=== PATIENT | male | born 1965 | race Two or more races ===

== ENCOUNTER 2021-12-04 01:43 | Emergency (ER) | payer MEDICAID, SELFPAY ==
--- NOTE | ~2021-12-04 | CT_ITS ---
EXAMINATION: CT SOFT TISSUE NECK WITHOUT CONTRAST CLINICAL INFORMATION: Coarse 4 is. Croupy cough. Covid positive. COMPARISON: None TECHNIQUE: Helical imaging was performed in the axial plane with generation of coronal and sagittal reformatted images. This CT examination was performed using dose optimization techniques as appropriate, variously including the following: *Automated exposure control *Adjustment of mA and/or kV according to patient size (this includes techniques or standardized protocols for targeted exams where dose is matched to indication/reason for exam; i.e. extremities or head) *Use of iterative reconstruction technique DLP: 1023 mGy-cm FINDINGS: Imaged lungs are clear. The superior mediastinum is unremarkable. There is mild thickening of the colonic folds, with effacement of the laryngeal ventricle. Glottic structures are otherwise unremarkable. No subglottic edema. Epiglottis is thin. No contour abnormality or pathologic enhancement is seen within the oral cavity or pharyngeal mucosal space. The parapharyngeal fat is preserved. The carotid sheath vasculature opacify normally. No extra mucosal soft tissue mass or fluid collection is seen. No retropharyngeal fluid collection is seen. No cervical adenopathy is identified. The parotid glands are homogeneous in attenuation. The submandibular glands are normal. The thyroid gland is normal. Imaged brain parenchyma unremarkable. Mild mucosal thickening present throughout the ethmoid air cells and maxillary sinuses. Mastoid air cells are clear. Imaged brain parenchyma unremarkable. Mandible and temporomandibular joints are unremarkable. Caries present within the right mandibular dentition. Cervical spinal fusion from C5 to T1 with zero-profile devices. Prominent right posterolateral endplate osteophyte at C6-C7 left paracentral posterior endplate osteophyte at C5-C6. CT/CT soft tissue neck wo con IMPRESSION: * Mild thickening of the vocal folds with effacement of the laryngeal ventricle, suggestive of laryngitis. Glottis otherwise unremarkable. * Epiglottis is normal. * No subglottic edema or evidence of airway compromise. * No evidence of deep space infection. * Lungs are clear.
--- NOTE | ~2021-12-04 | XR_ITS ---
EXAMINATION: XR CHEST CLINICAL INFORMATION: Cough and shortness of breath COMPARISON: None TECHNIQUE: Frontal view of the chest was obtained. FINDINGS: No significant abnormality is noted involving the heart, lungs, mediastinum, bony thorax or soft tissues. XR/XR chest 1V IMPRESSION: Unremarkable examination.
[2021-12-04 01:58] VITALS: BP 189/94; PULSE 88; RESP 18; TEMP 36.8; O2SAT 99; BMI 37.3
--- NOTE | 2021-12-04 02:09 | ED.GENADULT ---
HPI - General Adult General Chief complaint: Upper Respiratory Symptoms Stated complaint: covid+ Time Seen by Provider: 12/04/21 01:46 Source: patient Mode of arrival: EMS History of Present Illness HPI narrative: 56-year-old male diagnosis COVID-19 on a home test and known underlying hypertension and diabetes for which he does not take his prescribed medications is brought in by EMS when patient states that he was having some cough, sore throat as well as right-sided neck pain which woke him up from sleep. He otherwise denies any headache, dizziness, ear pain, visual disturbance. Related Data Allergies Allergy/AdvReac Type Severity Reaction Status Date / Time No Known Allergies Allergy Unverified 08/09/20 15:26 Review of Systems Review of Systems: Pertinent positives and negatives as stated in HPI 10 point review of systems is otherwise negative. PMFSH Past Medical History Source: nursing notes reviewed Medical History Hypertension Social History Social History Alcohol intake: never Patient Tobacco Use Status: Never used Tobacco Use of substances other than those prescribed or required for medical reasons: No Advance Directives: No Physical Exam Vital Signs: Vital Signs: Last Vital Signs Temp 97.9 F 12/04/21 04:13 Pulse 86 12/04/21 04:13 Resp 16 12/04/21 04:13 BP 188/94 H 12/04/21 04:13 Pulse Ox 97 12/04/21 04:13 BMI result Body Mass Index 37.3 VITAL SIGNS: Reviewed. GENERAL: Well developed, well nourished, in no acute distress. HEAD: Normocephalic/atraumatic EYES: PERRLA, EOMI EARS: Ext canals without abnormality, TMs non-bulging and non-erythematous NOSE: Nares patent bilateral OROPHARYNX: no oral lesions noted, posterior pharynx clear and non-erythematous without noted tonsillar enlargement/erythema/exudates NECK: Supple, no adenopathy LUNGS: Normal breath sounds, no stridor, no tachypnea. No adventitious sounds or accessory muscle use. SpO2<97> CARDIOVASCULAR: Regular rate and rhythm without noted murmurs, no JVD or lower extremity edema. ABDOMEN: Soft, non-tender, non-distended with bowel sounds. NEUROLOGIC: Alert and oriented x 4. Strength and sensation to light touch were grossly intact x 4. Course Course Course Narrative: 56-year-old male with history and clinical presentation consistent with COVID-19 infection and possible corresponding croup/laryngitis. Review of all investigations otherwise negative for acute findings other than COVID-19 positivity. Due to the croup like features patient received 10 mg of dexamethasone. All results discussed with the patient bedside he was otherwise discharged home in stable condition with instructions to follow up with the primary care provider via telemedicine appointment. Medical Decision Making Lab Data Result diagrams: 12/04/21 02:10 12/04/21 02:10 Labs: Lab Results 12/04/21 12/04/21 12/04/21 Range/Units 02:03 02:10 02:10 WBC 5.9 (4.8-10.8) X10*3/uL RBC 4.37 L (4.60-5.80) X10*6/uL Hgb 13.0 L (14.0-18.0) g/dl Hct 40.2 L (42.0-52.0) % MCV 92.0 (80.0-98.0) fL MCH 29.7 (27.0-33.0) pg MCHC 32.3 (31.0-36.0) g/dl RDW 12.7 (11.0-16.0) % Plt Count 297 (160-400) X10*3/uL MPV 9.8 (9.4-12.4) fL Immature Gran % (Auto) 0.3 (0.0-0.4) % Neut % (Auto) 50.4 (45-73) % Lymph % (Auto) 23.4 (20-40) % [place] % (Auto) 16.4 H (2-11) % Eos % (Auto) 8.1 H (0-4) % Baso % (Auto) 1.4 (0-2) % Lymph # (Auto) 1.4 (1.2-4.9) X10*3/uL [place] # (Auto) 1.0 (0.1-1.2) X10*3/uL Eos # (Auto) 0.5 H (0.0-0.4) X10*3/uL Baso # (Auto) 0.1 (0.0-0.2) X10*3/uL Abs Immat Gran (auto) 0.02 (0.00-0.03) X10*3/uL Absolute Neuts (auto) 3.0 (2.0-8.3) x10*3/uL Absolute Nucleated RBC 0.000 (0.0-0.012) X10*3/uL Nucleated RBC % (auto) 0.0 (0.0-0.2) /100WBC VBG pH (7.32-7.43) VBG pCO2 mmHg VBG pO2 mmHg VBG HCO3 (22-26) mmol/L VBG O2 Saturation % VBG Base Excess mmol/L Sodium 138 (135-145) mmol/L Potassium 5.1 (3.3-5.1) mmol/L Chloride 104 (96-108) mmol/L Carbon Dioxide 24 (22-29) mmol/L Anion Gap 15 (12-20) BUN 21 H (9-16) mg/dL Creatinine 1.58 H (0.5-1.4) mg/dL Estim Creat Clear Calc 69.6 Estimated GFR 45 POC Glucose 173 H (60-115) mg/dL Random Glucose 210 H (60-115) mg/dL Calcium 9.6 (8.4-10.2) mg/dL Total Bilirubin 0.9 (0.0-1.0) mg/dL AST 27 (5-37) U/L ALT 22 (0-40) U/L Alkaline Phosphatase 150 H (39-117) U/L Total Protein 8.0 (6.5-8.0) g/dL Albumin 3.9 (3.5-5.0) g/dL COVID-19 (NOEMI) (Negative) COVID-19 Clin Com 12/04/21 12/04/21 12/04/21 Range/Units 02:10 02:10 02:14 WBC (4.8-10.8) X10*3/uL RBC (4.60-5.80) X10*6/uL Hgb (14.0-18.0) g/dl Hct (42.0-52.0) % MCV (80.0-98.0) fL MCH (27.0-33.0) pg MCHC (31.0-36.0) g/dl RDW (11.0-16.0) % Plt Count (160-400) X10*3/uL MPV (9.4-12.4) fL Immature Gran % (Auto) (0.0-0.4) % Neut % (Auto) (45-73) % Lymph % (Auto) (20-40) % [place] % (Auto) (2-11) % Eos % (Auto) (0-4) % Baso % (Auto) (0-2) % Lymph # (Auto) (1.2-4.9) X10*3/uL [place] # (Auto) (0.1-1.2) X10*3/uL Eos # (Auto) (0.0-0.4) X10*3/uL Baso # (Auto) (0.0-0.2) X10*3/uL Abs Immat Gran (auto) (0.00-0.03) X10*3/uL Absolute Neuts (auto) (2.0-8.3) x10*3/uL Absolute Nucleated RBC (0.0-0.012) X10*3/uL Nucleated RBC % (auto) (0.0-0.2) /100WBC VBG pH 7.34 7.34 (7.32-7.43) VBG pCO2 47 47 mmHg VBG pO2 34 34 mmHg VBG HCO3 26 26 (22-26) mmol/L VBG O2 Saturation 53.0 53.0 % VBG Base Excess 0.2 0.2 mmol/L Sodium (135-145) mmol/L Potassium (3.3-5.1) mmol/L Chloride (96-108) mmol/L Carbon Dioxide (22-29) mmol/L Anion Gap (12-20) BUN (9-16) mg/dL Creatinine (0.5-1.4) mg/dL Estim Creat Clear Calc Estimated GFR POC Glucose (60-115) mg/dL Random Glucose (60-115) mg/dL Calcium (8.4-10.2) mg/dL Total Bilirubin (0.0-1.0) mg/dL AST (5-37) U/L ALT (0-40) U/L Alkaline Phosphatase (39-117) U/L Total Protein (6.5-8.0) g/dL Albumin (3.5-5.0) g/dL COVID-19 (NOEMI) Positive A (Negative) COVID-19 Clin Com See Note Discharge Plan Discharge Clinical Impression: Croup, Viral syndrome, Lab test positive for detection of COVID-19 virus Patient Disposition: Home, Self-Care Instructions: Viral Syndrome (ED), Croup in Adults (ED), COVID-19 (Coronavirus Disease 2019) (ED) Additional Instructions: 1. Recommend using [id number] Tylenol/ibuprofen as needed body aches, headache, temperatures greater than 100.4. 2. Recommend using [id number] cough suppressant to minimize throat and chest irritation. In addition, cool mist humidifier provides good relief at the bedside while sleeping. 3. Isolate for the next 11 days as you are COVID-19 positive and then follow all state and Federal guidelines. 4. Follow-up with your primary care provider in the morning via telemedicine appointment. I strongly recommend that you start taking your prescription medications as prescribed. Return to the ER for acute worsening of symptoms.
[2021-12-04 02:12] LABS: Glucose, Whole Blood 173 mg/dL (60-115)
[2021-12-04 02:14] VITALS: BP 189/94; PULSE 88; RESP 16; TEMP 36.8; O2SAT 98
[2021-12-04 02:16] LABS: MANUAL DIFF FLAG NO
[2021-12-04 02:17] LABS: Basophils Absolute Auto 0.1 X10*3/uL (0.0-0.2); Basophils Percent Auto 1.4 % (0-2); Eosinophils Absolute Auto 0.5 X10*3/uL (0.0-0.4); Eosinophils Percent Auto 8.1 % (0-4); Hematocrit 40.2 % (42.0-52.0); Imm Gran Abs Auto 0.02 X10*3/uL (0.00-0.03); Imm Gran Pct Auto 0.3 % (0.0-0.4); Lymphocytes Absolute Auto 1.4 X10*3/uL (1.2-4.9); Lymphocytes Percent Auto 23.4 % (20-40); Mean Corpuscular HGB Conc 32.3 g/dl (31.0-36.0); Mean Corpuscular Hemoglobin 29.7 pg (27.0-33.0); Mean Platelet Volume 9.8 fL (9.4-12.4); Monocytes Percent Auto 16.4 % (2-11); Neutrophils Percent Auto 50.4 % (45-73); Platelet Count 297 X10*3/uL (160-400); Red Blood Count 4.37 X10*6/uL (4.60-5.80); Red Cell Distribution Width 12.7 % (11.0-16.0); White Blood Count 5.9 X10*3/uL (4.8-10.8)
[2021-12-04 02:28] LABS: COVID-19 Test Positive (Negative)
[2021-12-04 02:46] LABS: Alanine Aminotransferase 22 U/L (0-40); Albumin Level 3.9 g/dL (3.5-5.0); Alkaline Phosphatase 150 U/L (39-117); Anion Gap 15 (12-20); Aspartate Amino Transferase 27 U/L (5-37); Bilirubin Total 0.9 mg/dL (0.0-1.0); Blood Urea Nitrogen 21 mg/dL (9-16); Calcium 9.6 mg/dL (8.4-10.2); Carbon Dioxide 24 mmol/L (22-29); Chloride 104 mmol/L (96-108); Creatinine Clr Calc Pharmacy 69.6; Estimated Glomerular Filt Rate 45; Glucose Random 210 mg/dL (60-115); Potassium 5.1 mmol/L (3.3-5.1); Sodium 138 mmol/L (135-145)
[2021-12-04 02:47] LABS: Venous Blood Gas Refer to POC result
[2021-12-04 02:48] LABS: VBG pCO2 47 mmHg; VBG pH 7.34 (7.32-7.43)
[2021-12-04 02:49] LABS: VBG Base Excess 0.2 mmol/L; VBG HCO3 26 mmol/L (22-26); VBG pO2 34 mmHg
[2021-12-04 02:49] LABS: VBG Base Excess 0.2 mmol/L; VBG HCO3 26 mmol/L (22-26); VBG pCO2 47 mmHg; VBG pH 7.34 (7.32-7.43); VBG pO2 34 mmHg
[2021-12-04] MEDS: dexAMETHasone sod phosphate 10 MG/ML VIAL IVPUSH (02:51)
[2021-12-04] MEDS: 0.9 % Sodium Chloride 1,000 ML 999 ML IV (03:43)
[2021-12-04 04:13] VITALS: BP 188/94; PULSE 86; RESP 16; TEMP 36.6; O2SAT 97
[2021-12-04 04:39] LABS: Glucose, Whole Blood 199 mg/dL (60-115)
[2021-12-04] MEDS: Benzonatate 100 MG CAPSULE 200 MG PO (05:03)
== END 2021-12-04 05:15 | disposition home or self-care (01) ==
PROVIDERS: Emergency Provider Student in an Organized Health Care Education/Training Program
DX: U07.1 COVID-19 (principal); B34.9 Viral infection, unspecified; J05.0 Acute obstructive laryngitis [croup]; I10 Essential (primary) hypertension; E11.9 Type 2 diabetes mellitus without complications; Z91.14 Patient's other noncompliance with medication regimen
CPT/HCPCS: 70490; 71045; 80053; 82803; 82947; 85025; 87635; 96361; 96374; 99284; J1100